=== PATIENT | male | born 1965 | race Caucasian/White ===

== ENCOUNTER 2019-06-27 07:59 | Day surgery (SDC) | payer BC ==
[~2019-06-27] VITALS: Ht 165.1 cm; Wt 97.0 kg
[2019-06-27] VITALS (7 sets, daily range): BP systolic 105–130; BP diastolic 73–82; PULSE 62–86; RESP 16–20; Ht 165.1 cm; Wt 97.0 kg
[~2019-06-27 07:59] MED LIST: ASPI-817 ORAL; ATOR20TA38 PO; CARV12.579 ORAL; ERGO500013 ORAL; FENO145T37 ORAL; ISOS60TA ORAL; LOSA50TA14 PO; LUBI24CA7 PO; PANT40TA3 PO; TEMA30CA ORAL
[2019-06-27] MEDS ORDERED: FAMOTIDINE 20 MG TAB PO ONE (08:00)
[2019-06-27] MEDS ORDERED: DIPHENHYDRAMINE 50 MG CAP PO ONE (08:00)
[2019-06-27] MEDS ORDERED: SOD CHLORIDE 0.45% 1,000 ML IV SCH (08:00)
[2019-06-27] MEDS ORDERED: DIAZEPAM 5 MG TAB PO ONE (08:00)
[2019-06-27] MEDS ORDERED: HEPARIN 1000 UNITS/NS (A-LINE) 1,000 ML ONE (08:40)
[2019-06-27] MEDS ORDERED: LIDOCAINE 1% (MDV) 20 ML INJ ONE (08:40)
[2019-06-27] MEDS ORDERED: HEPARIN 1000 UNITS/ML 10 ML INJ ONE (08:58)
[2019-06-27] MEDS ORDERED: IODIXANOL LOCM 100 ML BTL ONE ×2 (08:58→10:16)
[2019-06-27] MEDS ORDERED: VERAPAMIL 5 MG INJ ONE (08:58)
[2019-06-27] MEDS ORDERED: NITROGLYCERIN (IC) 100 MCG/ML INJ ONE (08:59)
[2019-06-27] MEDS ORDERED: FENTAnyl 50 MCG/ML VIAL ONE (09:30)
[2019-06-27] MEDS ORDERED: MIDAZOLAM 1 MG/ML 2 ML INJ ONE (09:31)
--- NOTE | 2019-06-27 10:20 | SIPON ---
Date/Time of Note Date/Time of Note DATE: 06/27/19 TIME: 10:19 Operative Report Preoperative Diagnosis 1.Chest pain 2.abnl mpi 3.abnl cardiac CTA Postoperative Diagnosis 1.moderate nonobstructive cad Operation/Procedure Performed 1.[facility] Surgeon see signature line mobile sales assistant 1.[facility] Anesthesia: moderate sedation Estimated blood loss: minimal Transfusion Required none Specimen none Grafts/Implants none Complications none ALFREDO MARES Jun 27, 2019 10:20
[2019-06-27] MEDS ORDERED: SOD CHLORIDE 0.9% 1,000 ML IV SCH (10:31)
[2019-06-27] MEDS ORDERED: ACETAMINOPHEN 325 MG TAB PO PRN (11:00)
[2019-06-27] MEDS ORDERED: ONDANSETRON 4 MG INJ IV PRN (11:00)
[2019-06-27] MEDS ORDERED: morphine 2 MG INJ IV PRN (11:00)
[2019-06-27] MEDS ORDERED: AL HYDROX/MG HYDROX/SIMETH 30 ML CUP PO PRN (11:00)
--- NOTE | 2019-06-27 12:19 | RADRPT ---
Vent Rate: 75 bpm RR Interval: 796 msec [place] Interval: 155 msec QRS Duration: 86 msec QT Interval: 385 msec QTC Interval: 432 msec P-R-T [place]: 48 - 49 - 56 degrees Sinus rhythm...normal P axis, V-rate 50- 99 Electronically Signed By: Raymond Ramirez
== END 2019-06-27 13:30 | disposition home or self-care (01) ==
LOC: SDS 07:59
PROVIDERS: ATTEND Internal Medicine
DX: I25.10 Atherosclerotic heart disease of native coronary artery without angina pectoris (principal); I10 Essential (primary) hypertension; K21.9 Gastro-esophageal reflux disease without esophagitis; F17.210 Nicotine dependence, cigarettes, uncomplicated; I25.2 Old myocardial infarction; Z79.01 Long term (current) use of anticoagulants
CPT/HCPCS: 71045; 80048; 80061; 85025; 85610; 85730; 93005; 93458; C1887; J1644; J2250; J3010; Q9967; Z7610